=== PATIENT | male | born 1965 ===

== ENCOUNTER 2019-12-09 07:54 | Outpatient (CLI) | payer BC, SELFPAY ==
--- NOTE | 2019-12-09 11:00 | NEURO_ITS ---
Patient Number: [id number] Impression: # Complains of poor motor control. History of brain injury. # Only right sided study done due to patient tolerance. # Normal nerve conduction study of upper extremity with no neurogenic changes. 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 Nerve Conduction Studies Anti Sensory Summary Table Stim Site NR Peak (ms) P-T Amp (?V) Site1 Site2 Delta-P (ms) Dist (cm) Paco (m/s) Right Median Anti Sensory (2-3nd Digit) Wrist 5.2 20.5 Wrist 2-3nd Digit 5.2 14.0 27 Wrist 5.7 10.4 Wrist 2-3nd Digit 5.2 14.0 27 Right Radial Anti Sensory (Base 1st Digit) Wrist 3.4 20.3 Wrist Base 1st Digit 3.4 0.0 Right Sup Fibular Anti Sensory (Ant Lat Mall) 14 cm 5.5 8.3 14 cm Ant Lat Mall 5.5 16.0 29 Right Sural Anti Sensory (Lat Mall) Calf 3.4 8.4 Calf Lat Mall 3.4 16.0 47 Right Ulnar Anti Sensory (5th Digit) NO PINKY FINGER Wrist NR Wrist 5th Digit 14.0 Motor Summary Table Stim Site NR Onset (ms) O-P Amp (mV) Site1 Site2 Delta-0 (ms) Dist (cm) Paco (m/s) Right Median Motor (Abd Poll Brev) Wrist 4.2 4.0 Elbow Wrist 7.6 32.0 42 Elbow 11.8 2.6 Right Peroneal Motor (Vastus Med) Ankle 6.3 0.5 Popit Ankle 11.2 39.0 35 Popit 17.5 0.6 Right Tibial Motor (Abd Martell Brev) Ankle 6.2 0.1 Knee Ankle 13.5 46.0 34 Knee 19.7 0.1 Right Ulnar Motor (Abd Dig Minimi) Wrist 3.1 2.1 A Elbow Wrist 6.0 32.0 53 A Elbow 9.1 1.6 F Wave Studies NR F-Lat (ms) L-R F-Lat (ms) Right Median (Mrkrs) (Abd Poll Brev) 29.30 Right Peroneal (Mrkrs) (EDB) 62.46 Right Tibial (Mrkrs) (Abd Hallucis) 61.64 Right Ulnar (Mrkrs) (Abd Dig Min) 30.48 EMG Side Muscle Nerve Root Ins Act Fibs Amp Dur Recrt Comment Right 1stDorInt Ulnar C8-T1 Nml Nml Nml Nml Nml Right Ext Indicis Radial (Post Int) C7-8 Nml Nml Nml Nml Nml Right Ext Digitorum Radial (Post Int) C7-8 Nml Nml Nml Nml Nml Right BrachioRad Radial C5-6 Nml Nml Nml Nml Nml Right PronatorTeres Median C6-7 Nml Nml Nml Nml Nml Right Abd Poll Brev Median C8-T1 Nml Nml Nml Nml Nml Right AntTibialis Dp Br Fibular L4-5 Nml Nml Nml Nml Nml Right Gastroc Tibial S1-2 Nml Nml Nml Nml Nml Right Fibularis Long Sup Br Fibular L5-S1 Nml Nml Nml Nml Nml Right Flex Dig Long Tibial L5-S2 Nml Nml Nml Nml Nml Right Ext Dig Brev Dp Br Fibular L5, S1 Nml Nml Incr >12ms Reduced MTDD
== END 2019-12-09 07:55 | disposition home or self-care (01) ==
PROVIDERS: PCP Chiropractor; Visit Provider Psychiatry & Neurology Neurology
DX: R20.2 Paresthesia of skin (principal)
CPT/HCPCS: 95886; 95911